=== PATIENT | male | born 1955 | race Caucasian/White ===

== ENCOUNTER → 2023-11-01 07:01 | Outpatient (REF) | payer MEDICARE, OTHER, SELFPAY | LOC: HWRAD 07:01 | PROVIDERS: ATTENDING PHYSICIAN Urology; FAMILY PHYSICIAN Internal Medicine | DX: N40.1 Benign prostatic hyperplasia with lower urinary tract symptoms (principal); N20.0 Calculus of kidney | CPT/HCPCS: 76775 ==

== ENCOUNTER 2023-11-18 06:17 | Day surgery (SDC) | payer MEDICARE, OTHER, SELFPAY ==
[2023-11-15 06:39] VITALS: BMI 28.9
--- NOTE | 2023-11-15 10:12 | PTCARENOTE ---
Patients 11/14 Hi 2Irene Sena @ Dr. Rico office notified
[2023-11-18] VITALS (7 sets, daily range): BP systolic 123–164; BP diastolic 75–98; BMI 28.9
[2023-11-18] MEDS: NORMOSOL-R 1000 IV (13:03)
[2023-11-18] MEDS: Pyridium 200 MG PO ×2 (13:03→15:38)
--- NOTE | 2023-11-18 16:14 | PTCARENOTE ---
Addendum 1545- pt. states he has to pee, belly soft. unable to void in urinal, bladder scanned for 158ml. Pt. states I had to get a catheter last time I was here, will continue to monitor.
[2023-11-18] MEDS: TORADOL 30 MG IV (16:53)
[2023-11-18] MEDS: DITROPAN 5 MG PO (16:54)
[2023-11-18] MEDS: ZOFRAN 4 MG IV (17:03)
[2023-11-18] MEDS: DILAUDID 2 MG PO (17:09)
[2023-11-23 19:57] LABS: Stone Analysis Mass 18 mg
== END 2023-11-18 17:49 | disposition home or self-care (01) ==
LOC: SDS 06:17
PROVIDERS: ATTENDING PHYSICIAN Urology; FAMILY PHYSICIAN Internal Medicine
DX: N20.0 Calculus of kidney (principal)
CPT/HCPCS: 52356; 74420; 76000; 82365; A4300; C1758; C1769; C1894; C2617

== ENCOUNTER → 2024-01-17 08:40 | Outpatient (REF) | payer OTHER, SELFPAY | LOC: HWCARD 08:40 | PROVIDERS: ATTENDING PHYSICIAN Physical Medicine & Rehabilitation; FAMILY PHYSICIAN Internal Medicine | DX: Z01.818 Encounter for other preprocedural examination (principal) | CPT/HCPCS: 93005 ==

== ENCOUNTER → 2024-05-18 07:20 | Outpatient (REF) | payer MEDICARE, OTHER, SELFPAY ==
[2024-05-18 09:43] LABS: % Basophils 0.5 % (0-2); % Eosinophils 1.1 % (0-6); % Immature Granulocytes 0.4 % (0-0.5); % Lymphocytes 16.1 % (20.5-51.1); % Monocytes 8.2 % (1.7-9.3); % Neutrophils 73.7 % (42.2-75.2); Absolute Basophils 0.1 10^3/uL (0-0.2); Absolute Eosinophils 0.1 10^3/uL (0-0.7); Absolute Lymphocytes 1.6 10^3/uL (1.2-3.4); Absolute Monocytes 0.8 10^3/uL (0.1-0.6); Absolute Neutrophils 7.5 10^3/uL (1.4-6.5); Hematocrit 40.7 % (39.0-52.0); Mean Corp Hgb Conc. 34.4 g/dL (33.0-37.0); Mean Corpuscular Volume 87.3 fL (80.0-94.0); Mean Platelet Volume 10.3 fL (7.4-10.4); Nucleated Red Blood Cells % 0 % (-); Platelet Count 269 10^3/uL (130-400); Red Blood Cell Count 4.66 10^6/uL (4.70-6.10); Red Cell Dist. Width 12.4 % (11.5-14.5); White Blood Cell Count 10.2 10^3/uL (4.8-10.8)
[2024-05-18 10:06] LABS: Urine Albumin Negative (Neg - Trace); Urine Bilirubin Negative (Negative); Urine Character Clear (Clear); Urine Color Yellow; Urine Glucose Negative (Negative); Urine Ketone Negative (Negative); Urine Leukocyte Negative (Negative); Urine Nitrite Negative (Negative); Urine Occult Blood Negative (Negative); Urine Urobilinogen Negative (Neg - 1+)
[2024-05-18 10:46] LABS: Blood Urea Nitrogen 22 mg/dl (9-20); Calcium 9.2 mg/dl (8.4-10.2); Carbon Dioxide 32 mmol/L (22-30); Chloride 101 mmol/L (98-107); Glucose 97 mg/dl (70-99); Potassium 3.7 mmol/L (3.5-5.1); Sodium 142 mmol/L (135-145); eGFR 43.91
== END ==
LOC: HWLAB 07:20
PROVIDERS: ATTENDING PHYSICIAN Specialist; FAMILY PHYSICIAN Internal Medicine
DX: I10 Essential (primary) hypertension (principal); N18.30 Chronic kidney disease, stage 3 unspecified; N20.0 Calculus of kidney
CPT/HCPCS: 36415; 74018; 80048; 81003; 85025

== ENCOUNTER → 2024-10-22 09:30 | Outpatient (REF) | payer MEDICARE, OTHER, SELFPAY ==
[2024-10-22 12:21] LABS: PSA, Total - Diagnostic 0.93 ng/ml (0.0-4.0)
== END ==
LOC: HWRAD 09:30
PROVIDERS: ATTENDING PHYSICIAN Urology; FAMILY PHYSICIAN Internal Medicine
DX: N20.0 Calculus of kidney (principal); N40.1 Benign prostatic hyperplasia with lower urinary tract symptoms
CPT/HCPCS: 36415; 76775; 84153